=== PATIENT | female | born 1985 | race Two or more races ===

== ENCOUNTER 2017-03-26 19:23 | Emergency (ER) | payer MEDICAID ==
[~2017-03-26] VITALS: Ht 154.9 cm; Wt 67.1 kg
[2017-03-26] MEDS ORDERED: NKM (19:56)
[2017-03-26 20:15] VITALS: BP 117/70
[2017-03-26] MEDS ORDERED: IBUPROFEN600 MG ORAL (20:23)
[2017-03-26] MEDS ORDERED: Dexamethasone 4mg/ml vial IM ONE (20:30)
[2017-03-26 20:35] VITALS: BP 112/71
--- NOTE | 2017-03-26 21:54 | Emergency Room Report ---
History of Present Illness General Chief Complaint: Sore Throat Source: Patient Present Illness HPI 31-year-old female presents with sore throat for 3 days. States sore throat, +mild dry cough. Pain with swallowing however has still been able to eat/drink. No change in voice. No pain with extension/movement of neck. Denies fever or chills. No sick contacts. Allergies: Coded Allergies: No Known Allergies (Unverified , 03/26/17) Patient History Past Medical History: see triage record Past Surgical History: none Pertinent Family History: none Last Menstrual Period: 03/25/17 Now: No Reviewed Nursing Documentation: PMH: Agreed, PSxH: Agreed Nursing Documentation-PMH Past Medical History: No Stated History Review of Systems All Other Systems: negative except mentioned in HPI Physical Exam Vital Signs Date Time Temp Pulse Resp B/P (MAP) Pulse Ox O2 Delivery O2 Flow Rate FiO2 03/26/17 19:53 98.1 53 16 112/71 99 Room Air 98.1 Sp02 EP Interpretation: reviewed, normal General Appearance: normal inspection, well appearing, no apparent distress, alert, GCS 15, non-toxic Head: normocephalic, atraumatic Eyes: bilateral eye normal inspection, bilateral eye PERRL, bilateral eye EOMI ENT: tonsillar swelling, pharyngeal erythema, other - 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 river captain Neck: normal inspection, full range of motion, supple Respiratory: normal inspection, lungs clear, normal breath sounds, no respiratory distress, no retraction, no wheezing, speaking full sentences, chest symmetrical Cardiovascular #1: normal inspection, regular rate, rhythm, no edema, normal capillary refill Cardiovascular #2: 2+ radial (R), 2+ radial (L) Gastrointestinal: normal inspection, non tender, soft, non-distended, no guarding Musculoskeletal: normal inspection, back normal, normal range of motion, non- tender Neurologic: normal inspection, alert, oriented x3, responsive, motor strength/ tone normal, sensory intact, normal gait, speech normal Psychiatric: normal inspection, judgement/insight normal, memory normal Skin: normal inspection, normal color, no rash, warm/dry, well hydrated, normal turgor Medical Decision Making Diagnostic Impression: Primary Impression: Sore throat ER Course 31-year-old female with sore throat DDX: Viral vs. infectious mononucleosis vs. bacterial pharyngitis vs. allergies Other serious causes such as TRACER POWDER BLENDER / RPA / deep space neck infection history/physical most consistent with viral pharyngitis Plan: Motrin, decadron, supportive care. Abx not indicated at this time ER course: Patient remains stable in ED. Pt states improvement of pain with motrin. Decadron given to patient. Disposition: Patient will be discharged to home. Patient will follow up with primary care doctor within 5 days. Strict return precautions discussed with patient such as worsening throat pain/swelling, dysphagia, high fever or chills, shortness of breath, abdominal pain, which may indicate severe illness. Patient verbalized understanding and agreed with plan. Please note that this Emergency Department Report was dictated using [employer] clerk subassembly technology software, occasionally this can lead to erroneous entry secondary to interpretation by the dictation equipment. Last Vital Signs Date Time Temp Pulse Resp B/P (MAP) Pulse Ox O2 Delivery O2 Flow Rate FiO2 03/26/17 20:29 98.1 03/26/17 19:53 53 16 112/71 99 Room Air Disposition: HOME, SELF-CARE Condition: Improved Scripts Ibuprofen* (MOTRIN*) 600 Mg Tablet 600 MG ORAL THREE TIMES A DAY, #30 TAB 0 Refills Prov: Fannie Bradford M.D. 03/26/17 Referrals: NOT CHOSEN [facility]/,REFERRING (PCP) Patient Instructions: Pharyngitis, [id number] Fannie Bradford M.D. Mar 26, 2017 21:54
== END 2017-03-26 20:35 | disposition home or self-care (01) ==
LOC: EMR 20:10
DX: R07.0 Pain in throat (principal); R05 Cough
CPT/HCPCS: 96372; 99283; J1100

== ENCOUNTER 2017-12-24 09:44 | Emergency (ER) | payer MEDICAID ==
[~2017-12-24] VITALS: Ht 160 cm; Wt 63.0 kg
[~2017-12-24 09:44] MED LIST: IBUPROFEN600 MG ORAL; NKM
[2017-12-24 09:57] VITALS: BP 103/61
[2017-12-24] MEDS ORDERED: CEPHALEXIN500 MG ORAL (10:09)
[2017-12-24] MEDS ORDERED: OCUFLOX5 ML RIGHT EYE (10:09)
[2017-12-24 10:15] VITALS: BP 103/61
--- NOTE | 2017-12-24 10:42 | Emergency Room Report ---
History of Present Illness General Chief Complaint: Eye Problems Source: Patient Present Illness HPI 32-year-old female presents ED complaining of redness around the right eye 1 day. States that she went to the observatory yesterday and placed her right eye and sided telescope. States she is concern for infection as many people use the same telescope. Denies pain. Denies any fevers chills. Denies any photophobia or discharge. Notes redness below the right eye. Denies any change in visual acuity. No other aggravating relieving factors. Denies any other associated symptoms Allergies: Coded Allergies: No Known Allergies (Unverified , 03/26/17) Patient History Past Medical History: none Past Surgical History: none Pertinent Family History: none Social History: Denies: smoking, alcohol use, drug use Last Menstrual Period: 12/04/17 Now: No Immunizations: UTD Reviewed Nursing Documentation: PMH: Agreed; PSxH: Agreed Nursing Documentation-PMH Past Medical History: No Stated History Review of Systems All Other Systems: negative except mentioned in HPI Physical Exam Vital Signs Date Time Temp Pulse Resp B/P (MAP) Pulse Ox O2 Delivery O2 Flow Rate FiO2 12/24/17 09:50 97.3 67 20 103/61 97 Room Air Sp02 EP Interpretation: reviewed, normal General Appearance: no apparent distress, alert, GCS 15, non-toxic Head: normocephalic Eyes: bilateral eye normal inspection, bilateral eye PERRL, bilateral eye EOMI , bilateral eye other - redness to lower R eyelid ENT: hearing grossly normal, normal pharynx, no angioedema, normal voice Neck: normal inspection Respiratory: normal inspection Cardiovascular #1: normal inspection Gastrointestinal: normal inspection Rectal: deferred Genitourinary: no CVA tenderness Musculoskeletal: normal inspection Neurologic: alert, oriented x3, responsive, motor strength/tone normal, sensory intact, speech normal Psychiatric: normal inspection Skin: normal inspection Lymphatic: normal inspection Medical Decision Making Diagnostic Impression: Primary Impression: Conjunctivitis Qualified Codes: H10.9 - Unspecified conjunctivitis ER Course Hospital Course 32 yo F presents with redness around R eye Differential diagnoses include: conjunctivitis, traumatic iritis, foreign body, corneal abrasion Clinical course Patient placed on stretcher. After initial history, physical exam revealed a female no acute distress. There is no scleral injection. No photophobia. Visual acuity intact. There is some redness to the lower eyelid on the right. No fluctuance or discharge. We will discharge with antibiotics given the contact history. However we will also treat preemptively for presumed conjunctivitis with ofloxacin. Safe for discharge with close outpatient follow-up Diagnosis - conjunctivitis Stable and discharged to home with prescription for Ocuflox, keflex. Followup with PMD/Optho. Return to ED if symptoms recur or worsen Last Vital Signs Date Time Temp Pulse Resp B/P (MAP) Pulse Ox O2 Delivery O2 Flow Rate FiO2 12/24/17 10:15 97.3 67 20 103/61 97 Room Air Status: improved Disposition: HOME, SELF-CARE Condition: Stable Scripts Cephalexin* (KEFLEX*) 500 Mg Capsule 500 MG ORAL EVERY 6 HOURS for 7 Days, CAP Prov: Julius Borjas MD 12/24/17 Ofloxacin (OCUFLOX) 5 Ml Drops 1 DROP RIGHT EYE QID for 7 Days, ML Prov: Julius Borjas MD 12/24/17 Referrals: NON PHYSICIAN (PCP) Patient Instructions: Bacterial Conjunctivitis Julius Borjas MD Dec 24, 2017 10:42
== END 2017-12-24 10:15 | disposition home or self-care (01) ==
LOC: EMR 10:09
DX: H10.9 Unspecified conjunctivitis (principal)
CPT/HCPCS: 99283

== ENCOUNTER 2018-01-31 16:39 | Emergency (ER) | payer MEDICAID ==
[~2018-01-31] VITALS: Ht 157.5 cm; Wt 59.0 kg
[~2018-01-31 16:39] MED LIST changes: +CEPHALEXIN500 MG ORAL; +OCUFLOX5 ML RIGHT EYE
[2018-01-31] MEDS ORDERED: NKM (16:51)
[2018-01-31 16:56] VITALS: BP 100/63
[2018-01-31] MEDS ORDERED: Acetaminophen 500mg (ES) tab ORAL ONE (17:30)
[2018-01-31] MEDS ORDERED: Ketorolac 30mg Inj IM ONE (17:30)
--- NOTE | 2018-01-31 17:31 | Emergency Room Report ---
History of Present Illness General Chief Complaint: Pain Source: Patient Present Illness HPI 32-year-old female presents to the emergency department complaining of 8 out of 10 in severity pain in the right upper shoulder/neck area that radiates down into the right arm 5 days. Patient reports feeling "tightness "in the neck/ shoulder area. She states that she has been working out regular leave this past week but the last 3 days has not done anything besides legs/ stairs. Patient denies previous injury to this extremity or her neck/back. she denies trauma or fall.Denies numbness tingling or loss of sensation or gross motor movements of the extremities, Denies CP, Palpitations, LOC, AMS, dizziness, weakness or a sudden severe headache. Pain worse with raising right arm. no relieving factors. Allergies: Coded Allergies: No Known Allergies (Unverified , 03/26/17) Patient History Past Medical History: see triage record Past Surgical History: none Pertinent Family History: none Last Menstrual Period: last week Now: No Reviewed Nursing Documentation: PMH: Agreed; PSxH: Agreed Nursing Documentation-PMH Past Medical History: No Stated History Review of Systems All Other Systems: negative except mentioned in HPI Physical Exam Vital Signs Date Time Temp Pulse Resp B/P (MAP) Pulse Ox O2 Delivery O2 Flow Rate FiO2 01/31/18 16:47 98.1 59 16 100/63 97 Room Air Sp02 EP Interpretation: reviewed, normal General Appearance: no apparent distress, alert, GCS 15, non-toxic Head: normocephalic, atraumatic Eyes: bilateral eye normal inspection, bilateral eye PERRL ENT: hearing grossly normal, normal voice Neck: full range of motion Respiratory: lungs clear, normal breath sounds, speaking full sentences Cardiovascular #1: regular rate, rhythm, normal capillary refill Cardiovascular #2: 2+ radial (R), 2+ radial (L) Musculoskeletal: back normal, gait/station normal, normal range of motion, tender - TTP to the right Trapezius musculature, FROM, no weakness, equal manager imaging strength, no obvious deformity or step off. Neurologic: alert, oriented x3, responsive, motor strength/tone normal, sensory intact, speech normal, grossly normal Psychiatric: judgement/insight normal Skin: normal color, no rash, warm/dry, well hydrated Medical Decision Making PA Attestation Dr. mitchell is my supervising Physician whom patient management has been discussed with. Diagnostic Impression: Primary Impression: Impingement syndrome of right shoulder region Additional Impression: Muscle strain ER Course 32-year-old female presents to the emergency department complaining of 8 out of 10 in severity pain in the right upper shoulder/neck area that radiates down into the right arm 5 days. Patient reports feeling "tightness "in the neck/ shoulder area. She states that she has been working out regular leave this past week but the last 3 days has not done anything besides legs/ stairs. Patient denies previous injury to this extremity or her neck/back. she denies trauma or fall.Denies numbness tingling or loss of sensation or gross motor movements of the extremities, Denies CP, Palpitations, LOC, AMS, dizziness, weakness or a sudden severe headache. Pain worse with raising right arm. no relieving factors. Ddx considered but are not limited to Fracture, dislocation, contusion, Sprain/ Strain/Spasm, DVT, Impingement Syndrome. Vital signs: are WNL, pt. is afebrile H&PE are most consistent with musculoskeletal injury will perform imaging to r/ o fractures/dislocations. ORDERS: - X-ray not warranted at this time patient does not have any bony tenderness to palpation ED INTERVENTIONS: - Soma -Toradol -Tylenol -I do not identify an emergent condition at this time. With current presentation , pt. is stable for close outpatient follow up and conservative treatment. D/ w pt. to return promptly to ED with worsening or new symptoms.- Pt. verbalizes' understanding and agreement with proposed treatment plan.proposed treatment plan. DISCHARGE: At this time pt. is stable for d/c to home. Will provide printed patient care instructions, and any necessary prescriptions. Care plan and follow up instructions have been discussed with the patient prior to discharge. Last Vital Signs Date Time Temp Pulse Resp B/P (MAP) Pulse Ox O2 Delivery O2 Flow Rate FiO2 01/31/18 16:56 98.1 86 16 100/63 97 Room Air Disposition: HOME, SELF-CARE Condition: Stable Scripts Ibuprofen* (MOTRIN*) 600 Mg Tablet 600 MG ORAL THREE TIMES A DAY, #20 TAB 0 Refills Prov: Rosalba Hansen 01/31/18 Methocarbamol* (ROBAXIN-750*) 750 Mg Tablet 750 MG PO QID for 7 Days, #28 TAB 0 Refills Prov: Rosalba Hansen 01/31/18 Referrals: NOT CHOSEN [facility]/MD,REFERRING (PCP) Patient Instructions: Muscle Pain, Adult Additional Instructions: Take medications as directed. Follow up with a Primary Care Provider in 3-5 days, even if your symptoms have resolved. --Please review list of primary care clinics, if you do not already have a primary care provider Return sooner to ED if new symptoms occur, or current symptoms become worse. Do not drink alcohol, drive, or operate heavy machinery while taking Robaxin ( Muscle Relaxers) as this may cause drowsiness. - Please note that this Emergency Department Report was dictated using [employer] cutter technology software, occasionally this can lead to erroneous entry secondary to interpretation by the dictation equipment. Rosalba Hansen Jan 31, 2018 17:31
[2018-01-31] MEDS ORDERED: IBUPROFEN600 MG ORAL (17:32)
[2018-01-31] MEDS ORDERED: ROBAXIN-750750 MG PO (17:32)
[2018-01-31 17:45] VITALS: BP 112/98
== END 2018-01-31 17:57 | disposition home or self-care (01) ==
LOC: EMR 17:12
DX: M75.41 Impingement syndrome of right shoulder (principal); S46.911A Strain of unspecified muscle, fascia and tendon at shoulder and upper arm level, right arm, initial encounter; X58.XXXA Exposure to other specified factors, initial encounter; Y92.9 Unspecified place or not applicable
CPT/HCPCS: 96372; 99283; J1885

== ENCOUNTER 2018-06-20 22:06 | Emergency (ER) | payer MEDICAID ==
[~2018-06-20] VITALS: Ht 162.6 cm; Wt 61.2 kg
[~2018-06-20 22:06] MED LIST changes: +ROBAXIN-750750 MG PO
[2018-06-20 22:30] VITALS: BP 110/71
--- NOTE | 2018-06-20 22:30 | NUR ---
ER Nurse Note: Pt came from home c/o left lower wisdom tooth pain since 06/17. Pt stated her wisdom teeth is othering her and she has an appoitment with her dentist tomorrow. Pt a&ox4, VSS, no signs of distress. Will continue to monitor.
[2018-06-20] MEDS ORDERED: HYDROcodone/Acetamin 5/325 tab ORAL ONE (23:00)
[2018-06-20] MEDS ORDERED: HYDROCODON-ACE1 EA15 ORAL (23:01)
[2018-06-20] MEDS ORDERED: AMOXICILLIN500 MG ORAL (23:01)
[2018-06-20] MEDS ORDERED: IBUPROFEN600 MG ORAL (23:01)
--- NOTE | 2018-06-20 23:02 | Emergency Room Report ---
History of Present Illness General Chief Complaint: Toothache Source: Patient Present Illness [facility] This is a 32-year-old female with no past medical history. She presents with chief complaint of dental pain. Onset for last 3-4 days. Pain is 10 out of 10. Localized to her left lower wisdom tooth. It's coming in. No fever chills but no swelling. Radiating to the jaw. [id number] medicine not helping. Has not seen anybody for it. Allergies: Coded Allergies: No Known Allergies (Unverified , 03/26/17) Patient History Past Medical History: none, see triage record, old chart reviewed Past Surgical History: none Pertinent Family History: none Social History: Denies: smoking Last Menstrual Period: 06/13/18 Now: No Immunizations: other Reviewed Nursing Documentation: PMH: Agreed; PSxH: Agreed Nursing Documentation-PMH Past Medical History: No Stated History Review of Systems Eye: Denies: eye pain, blurred vision ENT: Denies: ear pain, nose congestion, throat swelling Respiratory: Denies: cough, shortness of breath Cardiovascular: Denies: chest pain, palpitations Gastrointestinal: Denies: abdominal pain, diarrhea, nausea, vomiting Musculoskeletal: Denies: back pain, joint pain Skin: Denies: rash Neurological: Denies: headache, numbness Endocrine: Denies: increased thirst, increased urine Hematologic/Lymphatic: Denies: easy bruising All Other Systems: negative except mentioned in HPI Physical Exam Vital Signs Date Time Temp Pulse Resp B/P (MAP) Pulse Ox O2 Delivery O2 Flow Rate FiO2 06/20/18 22:07 98.4 57 18 97 Room Air 06/20/18 22:30 110/71 vitals normal Sp02 EP Interpretation: reviewed, normal General Appearance: well appearing, no apparent distress, alert Head: normocephalic, atraumatic Eyes: bilateral eye PERRL, bilateral eye EOMI ENT: hearing grossly normal, normal pharynx, other - Percussive tenderness over left lower wisdom tooth Neck: full range of motion, supple, no meningismus Respiratory: chest non-tender, lungs clear, normal breath sounds Cardiovascular #1: regular rate, rhythm, no murmur Gastrointestinal: normal bowel sounds, non tender, no mass, no organomegaly, no bruit, non-distended Musculoskeletal: back normal, gait/station normal, normal range of motion Psychiatric: mood/affect normal Skin: warm/dry Medical Decision Making Diagnostic Impression: Primary Impression: Toothache ER Course Patient with dental pain. No evidence of any abscess. We'll discharge home with referral to see a dentist. Last Vital Signs Date Time Temp Pulse Resp B/P (MAP) Pulse Ox O2 Delivery O2 Flow Rate FiO2 06/20/18 22:30 98.4 60 18 110/71 97 Room Air Status: improved Disposition: HOME, SELF-CARE Condition: Stable Scripts Ibuprofen* (MOTRIN*) 600 Mg Tablet 600 MG ORAL THREE TIMES A DAY, #30 TAB 0 Refills Prov: Checo Wesley MD 06/20/18 Hydrocodone/Acetaminophen 5-325* (HYDROCODONE/ACETAMINOPHEN 5-325*) 1 Each Tablet 1 TAB ORAL Q6H PRN for For Pain, #10 TAB 0 Refills Prov: Checo Wesley MD 06/20/18 Amoxicillin* (AMOXIL*) 500 Mg Capsule 500 MG ORAL THREE TIMES A DAY, #21 CAP Prov: Checo Wesley MD 06/20/18 [facility]errals: [facility]ERR[facility] (PCP) Patient Instructions: Dental Pain Additional Instructions: Follow-up with dentist STAN[facility]. Return if symptom worsen. Checo Wesley MD June 20, 2018 23:02
[2018-06-20 23:10] VITALS: BP 110/71
--- NOTE | 2018-06-20 23:10 | NUR ---
ER Nurse Note: All orders completed per ERMD orders. Pt seen, treated, medically cleared for discharge by ERMD. Discharge instructions and prescriptions given with repeat verbazliaion by pt. Instructed pt to follow up with primary care provider within one week and make an appointment at the dentist. Pt a&ox4, VSS, no signs of distress. Pain meds given; tolerated well. ID band removed. Pt left with all belongings with steady gait via own transportation.
== END 2018-06-20 23:10 | disposition home or self-care (01) ==
LOC: EMR 22:35
DX: K08.89 Other specified disorders of teeth and supporting structures (principal)
CPT/HCPCS: 99282

== ENCOUNTER 2019-06-14 19:45 | Emergency (ER) | payer MEDICAID ==
[~2019-06-14] VITALS: Ht 162.6 cm; Wt 61.7 kg
[~2019-06-14 19:45] MED LIST changes: +AMOXICILLIN500 MG ORAL; +HYDROCODON-ACE1 EA15 ORAL
[2019-06-14 20:07] VITALS: BP 120/76
--- NOTE | 2019-06-14 20:14 | Emergency Room Report ---
History of Present Illness General Chief Complaint: General Complaint Source: Patient Present Illness HPI 33-year-old female presents with vague complaints of sharp chest pain that comes and goes she also reports her face contorts in a funny way these episodes last a few minutes and they come and go denies any shortness of breath pain does not radiate to the back severity is mild patient presents for evaluation Allergies: Coded Allergies: No Known Allergies (Unverified , 03/26/17) COVID-19 Screening Contact w/high risk pt: No Recent Travel to affected area: No Experienced COVID-19 symptoms?: No Patient History Past Medical History: see triage record Last Menstrual Period: unk Reviewed Nursing Documentation: PMH: Agreed; PSxH: Agreed Nursing Documentation-PMH Past Medical History: No Stated History Review of Systems All Other Systems: negative except mentioned in HPI Physical Exam Vital Signs Date Time Temp Pulse Resp B/P (MAP) Pulse Ox O2 Delivery O2 Flow Rate FiO2 06/14/19 19:50 74 20 118/78 (91) 94 Room Air Sp02 EP Interpretation: reviewed, normal General Appearance: well appearing, no apparent distress, alert Head: normocephalic, atraumatic Eyes: bilateral eye PERRL, bilateral eye EOMI ENT: uvula midline, moist mucus membranes Neck: supple, thyroid normal, supple/symm/no masses Respiratory: lungs clear, no respiratory distress, no retraction, no accessory muscle use Cardiovascular #1: normal peripheral pulses, regular rate, rhythm, no edema, no gallop, no murmur Gastrointestinal: non tender, soft, no guarding, no rebound Musculoskeletal: normal inspection Neurologic: alert, oriented x3 Psychiatric: mood/affect normal Skin: no rash, warm/dry Medical Decision Making Diagnostic Impression: Primary Impression: Atypical chest pain ER Course 33-year-old female presents with vague complaints of chest pain, atypical in nature, doubt ACS doubt pneumonia, doubt dissection chest x-ray is negative, EKG is unremarkable. Counseled patient given strict reassurance Disposition home with return precautions follow-up with PCP EKG Diagnostic Results EKG Time: 20:03 EP Interpretation: NSR, rate 78, QTc 442, no acute ST elevations, normal axis Chest X-Ray Diagnostic Results Chest X-Ray Diagnostic Results : Chest X-Ray Ordered: Yes # of Views/Limited/Complete: 1 View Indication: Chest Pain EP Interpretation: Yes Interpretation: no consolidation, no effusion, no pneumothorax, no acute cardiopulmonary disease Impression: No acute disease Electronically Signed by: Orville Kaiser MD Last Vital Signs Date Time Temp Pulse Resp B/P (MAP) Pulse Ox O2 Delivery O2 Flow Rate FiO2 06/14/19 19:50 74 20 118/78 (91) 94 Room Air Disposition: HOME, SELF-CARE Condition: Stable Referrals: [facility] Rainey [facility] Patient Instructions: Nonspecific Chest Pain, [id number] Additional Instructions: The patient was provided with discharge instructions, notified to follow-up with a primary care doctor and or specialist in the next 24-48 hours, and to return to the ED if they have worsening of their symptoms. Please note that this report is being documented using [employer] technology. This can lead to erroneous entry secondary to incorrect interpretation by the dictating instrument. Orville Kaiser MD June 14, 2019 20:14
[2019-06-14 20:55] VITALS: BP 125/70
--- NOTE | 2019-06-15 09:07 | Diagnostic Imaging Report ---
Indication: Reason For Exam: CP Technique: One view of the chest Comparison: none Findings: Lungs and pleural spaces are clear. Heart size is normal. Impression: No acute process
== END 2019-06-14 20:55 | disposition home or self-care (01) ==
LOC: EMR 20:05
DX: R07.89 Other chest pain (principal)
CPT/HCPCS: 71045; 81025; 93005; Z7502; 99283

== ENCOUNTER 2019-12-08 00:30 | Emergency (ER) | payer MEDICAID ==
[~2019-12-08] VITALS: Ht 162.6 cm; Wt 74.8 kg
--- NOTE | 2019-12-08 00:31 | NUR ---
ED Nurse Note: Pt walked into ED from home c/o abdominal pain, n/v after eating octupus and crickets yesterday at 1800. Pt denies fevers, denies chills. Pt is AAOX4, breathing even and unlabored. Vital signs stable as documented.
[2019-12-08 00:35] VITALS: BP 120/75
[2019-12-08] MEDS ORDERED: Ketorolac 30mg Inj IV ONE (00:45)
--- NOTE | 2019-12-08 00:47 | Emergency Room Report ---
History of Present Illness General Chief Complaint: Abdominal Pain Source: Patient Present Illness HPI This is a 33-year-old female with no past medical history which presents with complaint abdominal pain with nausea and vomiting. Onset around 8:00 pm. Vomiting is nonbloody nonbilious. No diarrhea. Pain is epigastric in nature. No radiation. Pain is sharp in nature. 9 out of 10. She ate dinner around 6 PM at a restaurant. She said she had Octopus and crickets. This the first time having this meal. Nothing made it better. Nothing made it worse. Allergies: Coded Allergies: No Known Allergies (Unverified , 03/26/17) COVID-19 Screening Contact w/high risk pt: No Recent Travel to affected area: No Experienced COVID-19 symptoms?: Yes COVID-19 Testing performed LAB TECHNICIAN: No Patient History Past Medical History: see triage record, old chart reviewed Past Surgical History: none Pertinent Family History: none Social History: Denies: smoking Last Menstrual Period: 11/28/2019 Now: No : 0 Para: 0 Immunizations: other Reviewed Nursing Documentation: PMH: Agreed; PSxH: Agreed Nursing Documentation-PMH Past Medical History: No Stated History Review of Systems Eye: Denies: eye pain, blurred vision ENT: Denies: ear pain, nose congestion, throat swelling Respiratory: Denies: cough, shortness of breath Cardiovascular: Denies: chest pain, palpitations Gastrointestinal: Reports: abdominal pain, nausea, vomiting; Denies: diarrhea Musculoskeletal: Denies: back pain, joint pain Skin: Denies: rash Neurological: Denies: headache, numbness Endocrine: Denies: increased thirst, increased urine Hematologic/Lymphatic: Denies: easy bruising All Other Systems: negative except mentioned in HPI Physical Exam Vital Signs Date Time Temp Pulse Resp B/P (MAP) Pulse Ox O2 Delivery O2 Flow Rate FiO2 12/08/19 00:31 97.9 79 22 116/78 (91) 97 Room Air Vitals normal Sp02 EP Interpretation: reviewed, normal General Appearance: well appearing, no apparent distress, alert Head: normocephalic, atraumatic Eyes: bilateral eye PERRL, bilateral eye EOMI ENT: hearing grossly normal, normal pharynx Neck: full range of motion, supple, no meningismus Respiratory: chest non-tender, lungs clear, normal breath sounds Cardiovascular #1: regular rate, rhythm, no murmur Gastrointestinal: normal bowel sounds, no mass, no organomegaly, no bruit, non- distended, tenderness - Mild epigastric tenderness Musculoskeletal: back normal, normal range of motion, gait/station normal Psychiatric: mood/affect normal Medical Decision Making Diagnostic Impression: Primary Impression: Abdominal pain Qualified Codes: R10.13 - Epigastric pain Additional Impression: Nausea & vomiting Qualified Codes: R11.2 - Nausea with vomiting, unspecified ER Course She presents with abdominal pain with nausea and vomiting. This may be secondary to foodborne illness. Could also be an early gastroenteritis. She does have an elevated WBC. This is probably due to vomiting and stress response. No evidence of acute abdomen or obstruction. Pain resolved and nausea resolved. She is tolerating p.o. Will discharge home. CT/MRI/US Diagnostic Results CT/MRI/US Diagnostic Results : Imaging Test Ordered: CT abdomen and pelvis Impression Read by radiologist. Normal appendix. Small left ovarian cyst. No obstruction. Last Vital Signs Date Time Temp Pulse Resp B/P (MAP) Pulse Ox O2 Delivery O2 Flow Rate FiO2 12/08/19 00:31 97.9 79 22 116/78 (91) 97 Room Air Status: improved Disposition: HOME, SELF-CARE Condition: Improved Scripts Ondansetron (Zofran) 4 Mg Tablet 4 MG ORAL Q6H PRN for Nausea & Vomiting, #10 TAB 0 Refills Prov: Checo Wesley MD 12/08/19 Referrals: [facility] (PCP) Additional Instructions: Advance diet as tolerated. Follow-up with your doctor in 2 to 3 days. Return if worse. Checo Wesley MD Dec 08, 2019 00:47
--- NOTE | 2019-12-08 00:58 | NUR ---
ED Nurse Note: blood and urine sent to lab
--- NOTE | 2019-12-08 01:00 | NUR ---
ED Nurse Note: all medications administered, pt tolerated well no ss of distress noted. will continue to monitor.
[2019-12-08 01:09] LABS: APPEARANCE,URINE CLEAR; BILIRUBIN, URINE NEGATIVE (NEGATIVE); COLOR,URINE PALE YELLOW; GLUCOSE, URINE (UA) NEGATIVE (NEGATIVE); KETONES,URINE NEGATIVE (NEGATIVE); LEUKOCYTE ESTERASE ,URINE 1+ (NEGATIVE); NITRITE,URINE NEGATIVE (NEGATIVE); PH,URINE 7 (4.5-8.0); PROTEIN,URINE NEGATIVE (NEGATIVE); UROBILINOGEN,URINE NORMAL MG/DL (0.0-1.0)
[2019-12-08 01:10] LABS: HEMATOCRIT 44.4 % (37.0-47.0); HEMOGLOBIN 14.5 G/DL (12.0-16.0); MEAN CORPUSCULAR VOLUME 96 FL (80-99); PLATELET COUNT 193 K/UL (150-450); RED BLOOD COUNT 4.65 M/UL (4.20-5.40); WHITE BLOOD COUNT 19.6 K/UL (4.8-10.8)
[2019-12-08 01:21] LABS: ANION GAP 6 mmol/L (5-15); BLOOD UREA NITROGEN 17 mg/dL (7-18); CALCIUM 8.5 MG/DL (8.5-10.1); CARBON DIOXIDE 30 MMOL/L (21-32); CHLORIDE 105 MMOL/L (98-107); CREATININE 0.8 MG/DL (0.55-1.30); POTASSIUM 3.6 MMOL/L (3.5-5.1); SODIUM 141 MMOL/L (136-145)
[2019-12-08 01:25] LABS: ALANINE AMINOTRANSFERASE 21 U/L (12-78); ALBUMIN 3.8 G/DL (3.4-5.0); ALBUMIN/GLOBULIN RATIO 1.2 (1.0-2.7); ALKALINE PHOSPHATASE 72 U/L (46-116); BILIRUBIN,TOTAL 0.4 MG/DL (0.2-1.0)
[2019-12-08 01:36] LABS: ASPARTATE AMINO TRANSFERASE < 5 U/L (15-37)
[2019-12-08] MEDS ORDERED: Omnipaque-300 100ml vial INJ PRN (01:45)
--- NOTE | 2019-12-08 03:02 | Diagnostic Imaging Report ---
EXAM: CT Abdomen and Pelvis With Intravenous Contrast CLINICAL HISTORY: ABD PAIN TECHNIQUE: Axial computed tomography images of the abdomen and pelvis with intravenous contrast. CTDI is 5.40 mGy and DLP is 292.20 mGy-cm. One or more of the following dose reduction techniques were used: automated exposure control, adjustment of the mA and/or kV according to patient size, use of iterative reconstruction technique. COMPARISON: No relevant prior studies available. FINDINGS: Lung bases: Unremarkable. No mass. No consolidation. ABDOMEN: Liver: Trace periportal tracking. Gallbladder and bile ducts: Unremarkable. No calcified stones. No ductal dilation. Pancreas: Unremarkable. No mass. No ductal dilation. Spleen: Unremarkable. No splenomegaly. Adrenals: Unremarkable. No mass. Kidneys and ureters: Unremarkable. No solid mass. No hydronephrosis. Stomach and bowel: No small bowel obstruction or acute diverticulitis. PELVIS: Appendix: Normal appendix. Bladder: Unremarkable. No mass. Reproductive: Left ovarian cyst measuring 1.4 x 1.6 cm. ABDOMEN and PELVIS: Intraperitoneal space: Unremarkable. No free air. No significant fluid collection. Bones/joints: No acute fracture. No dislocation. Soft tissues: Unremarkable. Vasculature: No stenosis or occlusion of the superior mesenteric artery; however, note, this is not a CTA of the abdomen (provided history is pain after eating). No evidence of ischemic bowel. Lymph nodes: Unremarkable. No enlarged lymph nodes. IMPRESSION: 1. No stenosis or occlusion of the superior mesenteric artery; however, note, this is not a CTA of the abdomen (provided history is pain after eating). No evidence of ischemic bowel. 2. No small bowel obstruction or acute diverticulitis. Normal appendix. 3. Left ovarian cyst measuring 1.4 x 1.6 cm. Correlate with ultrasound if there is pelvic pain. 4. No cholelithiasis however, if there is high clinical suspicion for acute cholecystitis correlate with ultrasound.
[2019-12-08] MEDS ORDERED: ZOFRAN4 MG ORAL (03:26)
[2019-12-08 03:30] VITALS: BP 117/78
--- NOTE | 2019-12-08 03:30 | NUR ---
ER DISCHARGE NOTE: Patient is cleared to be discharged per ERMD, pt is aox4, on room air, with stable vital signs. pt was given dc and prescription instructions, pt was able to verbalize understanding, pt id band and iv site removed intact without complications. pt is able to ambulate with steady gait. pt took all belongings. pt stable upon discharge.
== END 2019-12-08 03:30 | disposition home or self-care (01) ==
LOC: EMR 00:43
DX: R11.2 Nausea with vomiting, unspecified (principal); R10.13 Epigastric pain; N83.202 Unspecified ovarian cyst, left side
CPT/HCPCS: 36415; 74177; 80053; 81003; 81025; 83690; 85007; 85025; 96361; 96374; 96375; J1885; J2405; J7030; Q9965; Z7502; 99284

== ENCOUNTER 2020-01-10 16:15 | Emergency (ER) | payer MEDICAID ==
[~2020-01-10] VITALS: Ht 157.5 cm; Wt 61.7 kg
[~2020-01-10 16:15] MED LIST changes: +ZOFRAN4 MG ORAL
[2020-01-10 16:27] VITALS: BP 134/71
--- NOTE | 2020-01-10 16:29 | NUR ---
ED Nurse Note: Pt walked in to ED c/o vaginal infection and painful urination since last night. Pt also reports white vaginal discharge. nad noted, vss, ambulatory.
[2020-01-10 17:44] LABS: APPEARANCE,URINE CLEAR; BILIRUBIN, URINE NEGATIVE (NEGATIVE); COLOR,URINE PALE YELLOW; GLUCOSE, URINE (UA) NEGATIVE (NEGATIVE); KETONES,URINE NEGATIVE (NEGATIVE); LEUKOCYTE ESTERASE ,URINE 1+ (NEGATIVE); NITRITE,URINE NEGATIVE (NEGATIVE); PH,URINE 6 (4.5-8.0); PROTEIN,URINE NEGATIVE (NEGATIVE); UROBILINOGEN,URINE NORMAL MG/DL (0.0-1.0)
--- NOTE | 2020-01-10 18:21 | Emergency Room Report ---
History of Present Illness General Chief Complaint: Female Urogenital Problems Source: Patient Present Illness HPI 34-year-old female with no significant past medical history here complaining of 1 day of dysuria urinary frequency. Also complains of a white vaginal discharge. Denies being sexually active. Denies vaginal lesions, fever and chills, nausea vomiting, suprapubic pain. Has not taken medication for symptom relief. Denies . Allergies: Coded Allergies: No Known Allergies (Unverified , 03/26/17) COVID-19 Screening Contact w/high risk pt: No Recent Travel to affected area: No Experienced COVID-19 symptoms?: No COVID-19 Testing performed JOB MOLDER: No Patient History Past Medical History: see triage record Past Surgical History: none Pertinent Family History: none Last Menstrual Period: 12/27/19 Now: No Reviewed Nursing Documentation: PMH: Agreed; PSxH: Agreed Nursing Documentation-PMH Past Medical History: No Stated History Review of Systems All Other Systems: negative except mentioned in HPI Physical Exam Vital Signs Date Time Temp Pulse Resp B/P (MAP) Pulse Ox O2 Delivery O2 Flow Rate FiO2 01/10/20 16:19 98.4 74 16 134/71 (92) 95 Room Air Sp02 EP Interpretation: reviewed, normal General Appearance: no apparent distress, alert, GCS 15, non-toxic Head: normocephalic, atraumatic Eyes: bilateral eye normal inspection, bilateral eye PERRL ENT: hearing grossly normal, normal pharynx, no angioedema, normal voice Neck: full range of motion, supple/symm/no masses Respiratory: chest non-tender, lungs clear, normal breath sounds, speaking full sentences Cardiovascular #1: regular rate, rhythm, no edema Cardiovascular #2: 2+ carotid (R), 2+ carotid (L), 2+ radial (R), 2+ radial (L), 2+ dorsalis pedis (R), 2+ dorsalis pedis (L) Gastrointestinal: normal bowel sounds, non tender, soft, non-distended, no guarding, no rebound Rectal: deferred Genitourinary: no CVA tenderness Musculoskeletal: back normal Neurologic: alert, motor strength/tone normal, oriented x3, sensory intact, responsive, speech normal Skin: no rash Lymphatic: no adenopathy Medical Decision Making PA Attestation All my diagnosis and treatment plans were reviewed ad discussed with my supervising physician Dr. Pate Diagnostic Impression: Primary Impression: UTI (urinary tract infection) Additional Impression: Yeast infection ER Course 34-year-old female with no significant past medical history here complaining of 1 day of dysuria urinary frequency. Also complains of a white vaginal discharge. Denies being sexually active. Denies vaginal lesions, fever and chills, nausea vomiting, suprapubic pain. Has not taken medication for symptom relief. Denies . Ddx considered but are not limited to: UTI, pyelonephritis, urinary incontinence, prolapsed bladder Vital signs: are WNL, pt. is afebrile H&PE are most consistent with: UTI, yeast infx ORDERS: UA, urine cx, Diflucan, Pyridium, Macrobid ED INTERVENTIONS: None required at this time. DISCHARGE: At this time pt. is stable for d/c to home. Will provide printed patient care instructions, and any necessary prescriptions. Care plan and follow up instructions have been discussed with the patient prior to discharge. Last Vital Signs Date Time Temp Pulse Resp B/P (MAP) Pulse Ox O2 Delivery O2 Flow Rate FiO2 01/10/20 16:27 98.4 16 134/71 95 Room Air 01/10/20 16:19 74 Disposition: HOME, SELF-CARE Condition: Stable Scripts Fluconazole (FLUCONAZOLE) 150 Mg Tablet 150 MG ORAL ONCE for 1 Day, #1 TAB 0 Refills Prov: Ruthie Tejada 01/10/20 Phenazopyridine Hcl* (PYRIDIUM*) 200 Mg Tablet 200 MG ORAL THREE TIMES A DAY for 2 Days, #6 TAB 0 Refills Prov: Ruthie Tejada 01/10/20 Nitrofurantoin Monohyd/M-Cryst* (MACROBID 100 MG*) 100 Mg Capsule 100 MG ORAL EVERY 12 HOURS for 7 Days, #14 CAP Prov: Ruthie Tejada 01/10/20 Referrals: [facility] (PCP) Patient Instructions: Vaginal Yeast Infection, Adult, Urinary Tract Infection Additional Instructions: Take medication as directed, follow primary care provider, if worsening symptoms return to the emergency room Ruthie Tejada Jan 10, 2020 18:21
[2020-01-10] MEDS ORDERED: NITROFURANTOIN100 M2 ORAL (18:22)
[2020-01-10] MEDS ORDERED: PHENAZOPYRIDIN200 MG ORAL (18:22)
[2020-01-10] MEDS ORDERED: FLUCONAZOLE150 MG ORAL (18:22)
[2020-01-10 18:25] VITALS: BP 134/78
--- NOTE | 2020-01-10 18:26 | NUR ---
ED Nurse Note: Pt cleared by health care Provider for discharge. DC instructions/prescription was given and explained to pt and verbalized understanding of teachings. All medical deviecs such as ID band removed. Pt is AAO x4, ambulatory and left with all personal belongings.
== END 2020-01-10 18:29 | disposition home or self-care (01) ==
LOC: EMR 16:25
DX: N39.0 Urinary tract infection, site not specified (principal); B37.9 Candidiasis, unspecified
CPT/HCPCS: 81003; 81025; Z7502; 99283

== ENCOUNTER 2020-05-05 14:07 | Emergency (ER) | payer MEDICAID ==
[~2020-05-05] VITALS: Ht 157.5 cm; Wt 65.8 kg
[~2020-05-05 14:07] MED LIST changes: +FLUCONAZOLE150 MG ORAL; +NITROFURANTOIN100 M2 ORAL; +PHENAZOPYRIDIN200 MG ORAL
--- NOTE | 2020-05-05 14:27 | Emergency Room Report ---
History of Present Illness General Chief Complaint: earache Present Illness HPI Patient is a 34-year-old female presents for increased right-sided earache for approximately 7 days. Increased leakage of fluid. Denies any fever. Denies any vertigo sensation. Slightly decreased hearing. Denies any recent trauma. No prior history of medical problems. Denies any vomiting. No other locations of concern. Allergies: Coded Allergies: No Known Allergies (Unverified , 03/26/17) COVID-19 Screening Contact w/high risk pt: No Recent Travel to affected area: No Experienced COVID-19 symptoms?: No Patient History Reviewed Nursing Documentation: PMH: Agreed; PSxH: Agreed Review of Systems All Other Systems: negative except mentioned in HPI Physical Exam General Appearance: well appearing, no apparent distress, alert, GCS 15 Head: normocephalic, atraumatic ENT: hearing grossly normal, normal voice Neck: full range of motion, supple Respiratory: no respiratory distress, speaking full sentences Cardiovascular #1: normal inspection, no edema Gastrointestinal: normal inspection, soft Musculoskeletal: normal inspection Neurologic: alert, motor strength/tone normal, camelid fiber sorter III-XII nml as tested, orie nted x3, normal gait Psychiatric: normal inspection, judgement/insight normal, mood/affect normal Skin: no rash Medical Decision Making Diagnostic Impression: Primary Impression: Otitis media, acute with perforation of eardrum ER Course Patient presents for right-sided earache. Differential diagnosis include was not limited to otitis media, external otitis, among others. Patient has a benign exam and does not appear to require any imaging or laboratory testing at this time. Patient appears to have a perforated otitis. Patient does not appear to have any evidence of significant external infection. She was advised not to use any drops in her ear. She is advised to follow-up with primary care physician for recheck. Advised to return if worse. Patient is given prescription for oral antibiotics. This medical record is generated with [employer] associate school psychologist software. There may be some associate school psychologist discrepancies related to use of this software Status: improved Disposition: HOME, SELF-CARE Condition: Daniel Copeland MD May 05, 2020 14:27
[2020-05-05] MEDS ORDERED: AUGMENTIN 875-1 EAC1 ORAL (14:28)
[2020-05-05 14:30] VITALS: BP 108/75
--- NOTE | 2020-05-05 14:43 | NUR ---
ED Nurse Note: Pt cleared by health care Provider for discharge. DC instructions/prescription was given and explained to pt and verbalized understanding of teachings. All medical devices such as ID band removed. Pt is AAO x4, ambulatory and left with all personal belongings.
== END 2020-05-05 14:43 | disposition home or self-care (01) ==
LOC: EMR 14:27
DX: H66.91 Otitis media, unspecified, right ear (principal)
CPT/HCPCS: 99281